=== PATIENT | female | born 1940 | race Caucasian/White ===

== ENCOUNTER 2017-10-17 18:45 | Inpatient (IN) | payer MEDICARE, MEDICAID ==
[2017-10-17] MEDS ORDERED: NORMAL SALINE 1000 ML 500 ML IV ONE (18:57)
[2017-10-17 19:23] LABS: ABSOLUTE MONOCYTES (AUTO) 0.3 10^3/uL (0.1-1.4); ABSOLUTE NEUT (AUTO) 3.5 10^3/uL (1.7-8.2); BASOPHILS % (AUTO) 0.5 % (0-2); EOSINOPHILS % (AUTO) 0.1 % (0-6); HEMATOCRIT 34.3 % (36.0-47.0); HEMOGLOBIN 11.9 g/dL (12.0-15.5); LYMPHOCYTES % (AUTO) 20.8 % (13-45); MEAN CORPUSCULAR HEMOGLOBIN 31.2 pg (27.0-33.4); MEAN CORPUSCULAR HGB CONC 34.6 g/dL (32.0-36.0); MEAN CORPUSCULAR VOLUME 90 fl (80-97); MONOCYTES % (AUTO) 6.8 % (3-13); PLATELET COUNT 193 10^3/uL (150-450); RED BLOOD COUNT 3.81 10^6/uL (3.72-5.28); RED CELL DISTRIBUTION WIDTH 13.3 % (11.5-14.0); SEGMENTED NEUTROPHILS % (AUTO) 71.8 % (42-78); TOTAL CELLS COUNTED % (AUTO) 100 %; WHITE BLOOD COUNT 4.9 10^3/uL (4.0-10.5)
--- NOTE | 2017-10-17 19:30 | EKG REPORT ---
SEVERITY:- ABNORMAL ECG - SINUS RHYTHM NONSPECIFIC T ABNORMALITIES, LATERAL LEADS : Confirmed by: Ady Inman 17-Oct-2017 19:29:04
[2017-10-17 19:39] LABS: ALANINE AMINOTRANSFERASE 29 U/L (9-52); ALBUMIN 3.6 g/dL (3.5-5.0); ALKALINE PHOSPHATASE 60 U/L (38-126); ANION GAP 9 (5-19); ASPARTATE AMINO TRANSFERASE 24 U/L (14-36); BILIRUBIN,DIRECT 0.3 mg/dL (0.0-0.4); BILIRUBIN,TOTAL 0.5 mg/dL (0.2-1.3); BLOOD UREA NITROGEN 11 mg/dL (7-20); CALCIUM 8.8 mg/dL (8.4-10.2); CARBON DIOXIDE 30 mmol/L (22-30); CHLORIDE 93 mmol/L (98-107); GLUCOSE 116 mg/dL (75-110); POTASSIUM 3.3 mmol/L (3.6-5.0); SODIUM 131.8 mmol/L (137-145); TOTAL PROTEIN 5.8 g/dL (6.3-8.2)
[2017-10-17] MEDS ORDERED: IPRATROPIUM/ALBUTEROL 0.5-2.5 MG/3 ML AMPUL NEB ONE (20:29)
[2017-10-17] MEDS ORDERED: METHYLPREDNISOLONE INJ 125 MG/2 ML SDV IV ONE (20:30)
--- NOTE | 2017-10-17 20:32 | ER Document Report ---
ED General - General Chief Complaint: Diarrhea Stated Complaint: BLOOD PRESSURE ISSUES Time Seen by Provider: 10/17/17 18:56 Notes: Patient is a 77-year-old female past medical history of COPD, hypertension, who presents after an episode of syncope as well as persistent diarrhea for the past 48 hours. Patient is apparently been having frequent runny diarrhea for the past 48 hours. She was sitting at the dinner table today, became lightheaded and passed out. EMS arrived and found patient be saturating 86% on room air with coarse wheezing in all lung gama. Her initial blood pressure was also in the 80s systolic. She received IV fluids in route to the hospital with normalization of her blood pressure. At time of my assessment the patient states that she overall feels well but mildly short of breath. She denies a history of similar symptoms in the past. She denies any chest pain, headache, abdominal pain, or vomiting. She does note that she continues to have persistent diarrhea. She has not seen her primary doctor regarding today's concerns. Nothing improves or worsens her symptoms TRAVEL OUTSIDE OF THE [place] IN LAST 30 DAYS: No - Related Data Allergies/Adverse Reactions: Penicillins Allergy (Verified 10/17/17 23:24) Past Medical History - General Information source: Patient, Relative - Social History Smoking Status: Current Every Day Smoker Chew tobacco use (# tins/day): No Frequency of alcohol use: None Drug Abuse: None Lives with: Family Family History: Reviewed & Not Pertinent Patient has suicidal ideation: No Patient has homicidal ideation: No - Past Medical History Cardiac Medical History: Reports: Hx Hypertension Renal/ Medical History: Denies: Hx Peritoneal Dialysis Review of Systems - Review of Systems Notes: Constitutional: Negative for fever. HENT: Negative for sore throat. Eyes: Negative for visual changes. Cardiovascular: Negative for chest pain. Respiratory: Positive for shortness of breath. Gastrointestinal: Negative for abdominal pain, positive for diarrhea Genitourinary: Negative for dysuria. Musculoskeletal: Negative for back pain. Skin: Negative for rash. Neurological: Negative for headaches, weakness or numbness. 10 point ROS negative except as marked above and in HPI. Physical Exam - Vital signs Vitals: Temp 98.9 F 10/17/17 19:01 Interpretation: Normal Notes: PHYSICAL EXAMINATION: GENERAL: Well-appearing, well-nourished and in no acute distress. HEAD: Atraumatic, normocephalic. EYES: Pupils equal round and reactive to light, extraocular movements intact, sclera anicteric, conjunctiva are normal. ENT: nares patent, oropharynx clear without exudates. Mildly dry mucous membranes. NECK: Normal range of motion, supple without lymphadenopathy LUNGS: No increased work of breathing. Lung sounds diminished throughout. Coarse respiratory wheezing throughout. HEART: Regular rate and rhythm without murmurs ABDOMEN: Soft, nontender, normoactive bowel sounds. No guarding, no rebound. No masses appreciated. EXTREMITIES: Normal range of motion, no pitting or edema. No cyanosis. NEUROLOGICAL: No focal neurological deficits. Moves all extremities spontaneously and on command. PSYCH: Normal mood, normal affect. SKIN: Warm, Dry, normal turgor, no rashes or lesions noted. Course - Re-evaluation Re-evalutation: 10/17/17 20:31 Patient presents with shortness of breath, hypoxic to 86% on room air and here in the emergency department with supplemental oxygen discontinued, with associated diarrhea and nausea for the past 48 hours. Patient did have a syncopal episode while at dinner tonight which I suspect was likely secondary to hypotension as patient was found to be hypotensive at time of presentation. She has had persistent diarrhea for the past 48 hours and does appear clinically dehydrated on exam. She and her family the bedside note that she seems much improved after receiving IV fluids. Patient is overall nontoxic in appearance, vitals other than hypoxemia are otherwise within normal limits. Motor examination she has very tight air movement in all lung gama, tight wheezing in all lung gama. Will begin duo nebulizer therapies, Solu-Medrol, IV fluids, and reassess the patient. 10/17/17 22:53 Patient has continued to require supplemental oxygenation despite administration of multiple nebulizer therapies, steroids and volume replacement. She desaturates rapidly to 85% on room air. Suspect a COPD exacerbation as chest x-ray is clear. I have discussed with the hospitalist Dr. Horn who is accepted the patient for admission. - Vital Signs Vital signs: Temp Pulse Resp BP Pulse Ox 98.9 F 83 16 124/50 L 95 10/17/17 19:01 10/18/17 01:54 10/18/17 01:54 10/17/17 22:47 10/18/17 01:54 - Laboratory Result Diagrams: 10/17/17 19:10 10/17/17 19:10 Laboratory results interpreted by me: 10/17/17 10/17/17 19:10 19:10 Hgb 11.9 L Hct 34.3 L Sodium 131.8 L Potassium 3.3 L Chloride 93 L Glucose 116 H Total Protein 5.8 L - Diagnostic Test Radiology reviewed: Image reviewed, Reports reviewed Radiology results interpreted by me: 10/17/17 20:46 Chest x-ray: No acute infiltrate or pneumothorax - EKG Interpretation by Me Additional EKG results interpreted by me: 10/17/17 20:46 Normal sinus rhythm. Rate 64. No ST elevations or depressions. QTC is 471. Discharge - Discharge Clinical Impression: COPD exacerbation, Dehydration Syncope Qualifiers: Syncope type: unspecified Qualified Code(s): R55 - Syncope and collapse Diarrhea Qualifiers: Diarrhea type: presumed infectious Qualified Code(s): R19.7 - Diarrhea, unspecified Condition: Fair Disposition: ADMITTED INPATIENT [facility] Admitted: Telemetry
--- NOTE | 2017-10-17 20:54 | RADIOLOGY REPORT (SQ) ---
EXAM DESCRIPTION: CHEST SINGLE VIEW COMPLETED DATE/TIME: 10/17/2017 8:36 pm REASON FOR STUDY: sob, hypoxia COMPARISON: None. EXAM PARAMETERS: NUMBER OF VIEWS: One view. TECHNIQUE: Single frontal radiographic view of the chest acquired. RADIATION DOSE: NA LIMITATIONS: None. FINDINGS: LUNGS AND PLEURA: No opacities, masses or pneumothorax. No pleural effusion. MEDIASTINUM AND HILAR STRUCTURES: No masses. Contour normal. HEART AND VASCULAR STRUCTURES: Heart upper limits of normal in size. Normal vasculature. BONES: No acute findings. HARDWARE: Hardware in the left humerus. OTHER: No other significant finding. IMPRESSION: NO ACUTE RADIOGRAPHIC FINDING IN THE CHEST. TECHNICAL DOCUMENTATION: JOB ID: [id number] [employer]- All Rights Reserved
[2017-10-17] MEDS ORDERED: KETOROLAC TROMETHAMINE INJ/PF 30 MG/1 ML SDV IV PRN (23:04)
[2017-10-17] MEDS ORDERED: CHLORPHENIRAMINE MALEATE 4 MG TABLET PO ONE (23:04)
[2017-10-17] MEDS ORDERED: ACETAMINOPHEN 325 MG TABLET PO PRN (23:04)
[2017-10-17] MEDS ORDERED: HYDRALAZINE HCL INJ/PF 20 MG/1 ML SDV IV PRN (23:04)
[2017-10-17] MEDS ORDERED: GUAIFENESIN SYRP 200 MG/10 ML UDC PO PRN (23:05)
[2017-10-17] MEDS ORDERED: IPRATROPIUM/ALBUTEROL 0.5-2.5 MG/3 ML AMPUL NEB PRN (23:05)
[2017-10-17] MEDS ORDERED: POTASSI CL 20 MEQ/50 ML RIDER 20 MEQ/50 ML RTUPB IV SCH (23:15)
[2017-10-17] MEDS ORDERED: FLUTICASONE NASAL SPRAY 50 MCG/SPRY 120 SPRAY/16 GM NASL ONE (23:45)
[2017-10-18] MEDS ORDERED: FLUTICASONE NASAL SPRAY 50 MCG/SPRY 120 SPRAY/16 GM ONE (00:47)
[2017-10-18] MEDS ORDERED: CHLORPHENIRAMINE MALEATE 4 MG TABLET ONE (00:59)
[2017-10-18] MEDS ORDERED: LEVOFLOXACIN 750 MG/D5W RTU 750 MG/150 ML RTUPB IV ONE (01:00)
[2017-10-18] MEDS: IPRATROPIUM/ALBUTEROL 0.5-2.5 MG/3 ML AMPUL NEB SCH ×4 (01:54→19:38)
[2017-10-18] MEDS ORDERED: POTASSIUM CHLORIDE 10 MEQ TABLET.SA PO ONE (03:26)
--- NOTE | 2017-10-18 03:37 | PDOC H&P ---
History of Present Illness Admission Date/PCP: 10/17/17 23:06 SABINA CORBIN MD Patient complains of: Shortness of breath and cough. History of Present Illness: LUCY ASIF is a 77 year old female with a past medical history of deafness, COPD, hypertension. Who presents after an episode of syncope which was preceded by severe paroxysms of cough and shortness of breath while at the dinner table however she denies eating during episode. EMS documents an oxygen saturation of 86% on room air with bilateral wheeze, systolic blood pressure in the 80s. She receives a liter of normal saline as a bolus in route to the emergency room. In the emergency room she is found to be normotensive with persistent wheeze. She denies chest pain palpitations nausea or vomiting but admits to 3 days rhinorrhea, postnasal drip and nonproductive cough. She started on empiric antibiotics and referred to the hospitalist for admission. She recent antibiotics, her symptoms of not improved with [id number] medications. Past Medical History Cardiac Medical History: Reports: Hypertension Pulmonary Medical History: Reports: Asthma, Bronchitis, Chronic Obstructive Pulmonary Disease (COPD) EENT Medical History: Reports: None Neurological Medical History: Reports: None Endocrine Medical History: Reports: None Renal/ Medical History: Reports: None Malignancy Medical History: Reports: None GI Medical History: Reports: None Musculoskeltal Medical History: Reports: None Skin Medical History: Reports: None Psychiatric Medical History: Reports: None Traumatic Medical History: Reports: None Hematology: Reports: None Infectious Medical History: Reports: None Past Surgical History Past Surgical History: Reports: Hysterectomy Social History Lives with: Family Smoking Status: Current Every Day Smoker - Advance Directive Resuscitation Status: Full Code Family History Family History: COPD, Hypertension Parental Family History Reviewed: Yes Children Family History Reviewed: Yes Sibling(s) Family History Reviewed.: Yes Medication/Allergy Allergies/Adverse Reactions: Penicillins Allergy (Verified 10/17/17 23:24) Review of Systems Constitutional: ABSENT: chills, fever(s), headache(s), weight gain, weight loss Eyes: ABSENT: visual disturbances Ears: ABSENT: hearing changes Cardiovascular: ABSENT: chest pain, dyspnea on exertion, edema, orthropnea, palpitations Respiratory: ABSENT: cough, hemoptysis Gastrointestinal: ABSENT: abdominal pain, constipation, diarrhea, hematemesis, hematochezia, nausea, vomiting Genitourinary: ABSENT: dysuria, hematuria Musculoskeletal: ABSENT: joint swelling Integumentary: ABSENT: rash, wounds Neurological: ABSENT: abnormal gait, abnormal speech, confusion, dizziness, focal weakness, syncope Psychiatric: ABSENT: anxiety, depression, homidical ideation, suicidal ideation Endocrine: ABSENT: cold intolerance, heat intolerance, polydipsia, polyuria Hematologic/Lymphatic: ABSENT: easy bleeding, easy bruising Physical Exam Vital Signs: Temp Pulse Resp BP Pulse Ox 98.9 F 83 16 124/50 L 95 10/17/17 19:01 10/18/17 01:54 10/18/17 01:54 10/17/17 22:47 10/18/17 01:54 Intake & Output 10/16/17 10/17/17 10/18/17 11:59 11:59 11:59 Weight 68.946 kg General appearance: PRESENT: cooperative, mild distress Head exam: PRESENT: atraumatic, normocephalic Eye exam: PRESENT: conjunctiva pink, EOMI, PERRLA. ABSENT: scleral icterus Ear exam: PRESENT: normal external ear exam Mouth exam: PRESENT: moist, tongue midline Neck exam: ABSENT: carotid bruit, JVD, lymphadenopathy, thyromegaly Respiratory exam: PRESENT: accessory muscle use, crackles, prolonged expiratory phas, rales, retraction, symmetrical, tachypnea, wheezes. ABSENT: rhonchi Cardiovascular exam: PRESENT: RRR. ABSENT: bradycardia, clicks, diastolic murmur, gallop, irregular rhythm, rubs, systolic murmur Pulses: PRESENT: normal dorsalis pedis pul Vascular exam: PRESENT: normal capillary refill GI/Abdominal exam: PRESENT: normal bowel sounds, soft. ABSENT: distended, guarding, mass, organolmegaly, rebound, tenderness Rectal exam: PRESENT: deferred Extremities exam: PRESENT: full ROM. ABSENT: calf tenderness, clubbing, pedal edema Neurological exam: PRESENT: alert, awake, oriented to person, oriented to place , oriented to time, oriented to situation, CN II-XII grossly intact. ABSENT: motor sensory deficit Psychiatric exam: PRESENT: appropriate affect, normal mood. ABSENT: homicidal ideation, suicidal ideation Skin exam: PRESENT: dry, intact, warm. ABSENT: cyanosis, rash Results Impressions: Chest X-Ray 10/17/17 18:56 IMPRESSION: NO ACUTE RADIOGRAPHIC FINDING IN THE CHEST. Assessment & Plan - Diagnosis (1) COPD exacerbation Is this a current diagnosis for this admission?: Yes Plan: Telemetry bed, secondary to sinusitis and bronchitis. Empiric antibiotics, trial prednisone, flutter valve, incentive spirometry albuterol and Atrovent (2) Acute sinusitis Is this a current diagnosis for this admission?: Yes Plan: Flonase, chlorpheniramine and empiric antibiotics (3) Acute bronchitis Is this a current diagnosis for this admission?: Yes Plan: Please see #1 (4) Syncope Qualifiers: Syncope type: unspecified Qualified Code(s): R55 - Syncope and collapse Is this a current diagnosis for this admission?: Yes Plan: Short lived without deficit occurring in the setting of severe fit of coughing, hypoxia and hyperventilation. - Time Time Spent: 50 to 70 Minutes
[2017-10-18 04:16] LABS: ABSOLUTE LYMPHOCYTES (AUTO) 0.4 10^3/uL (0.5-4.7); ABSOLUTE MONOCYTES (AUTO) 0.1 10^3/uL (0.1-1.4); ABSOLUTE NEUT (AUTO) 3.9 10^3/uL (1.7-8.2); BASOPHILS % (AUTO) 0.2 % (0-2); HEMOGLOBIN 11.1 g/dL (12.0-15.5); LYMPHOCYTES % (AUTO) 9.9 % (13-45); MEAN CORPUSCULAR HEMOGLOBIN 31.3 pg (27.0-33.4); MEAN CORPUSCULAR HGB CONC 34.7 g/dL (32.0-36.0); MEAN CORPUSCULAR VOLUME 90 fl (80-97); MONOCYTES % (AUTO) 1.5 % (3-13); PLATELET COUNT 183 10^3/uL (150-450); RED BLOOD COUNT 3.55 10^6/uL (3.72-5.28); RED CELL DISTRIBUTION WIDTH 13.2 % (11.5-14.0); SEGMENTED NEUTROPHILS % (AUTO) 88.4 % (42-78); TOTAL CELLS COUNTED % (AUTO) 100 %; WHITE BLOOD COUNT 4.4 10^3/uL (4.0-10.5)
[2017-10-18 04:34] LABS: ANION GAP 13 (5-19); BLOOD UREA NITROGEN 15 mg/dL (7-20); CALCIUM 8.4 mg/dL (8.4-10.2); CARBON DIOXIDE 25 mmol/L (22-30); CHLORIDE 95 mmol/L (98-107); GLUCOSE 280 mg/dL (75-110); SODIUM 132.9 mmol/L (137-145)
[2017-10-18 04:47] LABS: POTASSIUM 2.6 mmol/L (3.6-5.0)
[2017-10-18] MEDS ORDERED: HEPARIN SOD (PORCINE) 5,000 UNIT/ML 1 ML SYRINGE SUBCUT SCH (06:00)
[2017-10-18] MEDS: HEPARIN SOD (PORCINE) 5,000 UNIT/ML 1 ML SYRINGE SUBCUT SCH ×3 (06:22→21:30)
[2017-10-18] MEDS ORDERED: POTASSIUM CLORIDE 20 MEQ/50 ML RIDER IV ONE (08:30)
[2017-10-18] MEDS ORDERED: POTASSIUM CHLORIDE 20 MEQ/50 ML RTU IV ONE (08:30)
[2017-10-18] MEDS ORDERED: LEVOFLOXACIN 750 MG/D5W RTU 150 ML IV SCH (10:00)
[2017-10-18] MEDS ORDERED: PREDNISONE 20 MG TABLET PO SCH (10:00)
--- NOTE | 2017-10-18 10:24 | Physician Advisory Note ---
Physician Advisor ProgressNote .: Pursuant to the plan for [facility], I have reviewed the medical record for this patient. Physician Advisor Statement: Nice documentation of Acute Bronchitis w/COPD exac, & accessory muscle use/ retractions/resp distress/tachypnea in H&P. Please consider documenting, if you agree: 1. "Acute Hypoxemic REspiratory Failure with accessory muscle use & O2 sat 85% RA in ED" 2. "syncope, likely due to " 3. Medical necessity: Please mention in each note the clinical reasons pt still needs to stay in hospital, such as "Pt still tachycardic", "Acute hypokalemic is worse & may become more so from tx's for COPD exac", " respiratory status still not back to baseline", "still needs O2", "I AM CONCERNED about ", ... Status: this elderly Medicare pt has severe presentation, has already required 1 MN of hospital care & monitoring, & appears certain to need at least a 2nd MN of hospital care & monitoring before she can be expected to improve sufficiently for safe d/c. If attending agrees, & documents reasons as above, appropriate for Inpt status. Thanks! CK
[2017-10-18] MEDS: FLUTICASONE NASAL SPRAY 50 MCG/SPRY 120 SPRAY/16 GM NASL SCH ×2 (10:32→21:43)
[2017-10-18] MEDS: GUAIFENESIN 600 MG TABLET.SA PO SCH ×2 (10:32→21:30)
[2017-10-18] MEDS ORDERED: POTASSIUM CHLORIDE 20 MEQ/15 ML UDCUP PO ONE (11:00)
[2017-10-18] MEDS ORDERED: INFLUENZA ADLT QUAD (36MOS+) 2017-18 VAC 0.5 ML SYR IM PRN (12:31)
--- NOTE | 2017-10-18 12:39 | PDOC PROGRESS REPORT ---
Subjective Progress Note for:: 10/18/17 Subjective:: Patient is a 77-year-old female with a history of deafness, COPD, hypertension who presented after syncopal episode after a coughing fit. Patient was found to be hypoxic at that time. Patient appears more comfortable however she is still wheezing and coughing. Patient is asking when she will be able to go home. Patient states she feels okay. Reason For Visit: COPD EXACERBATION C ACUTE BRONCHITIS AND Physical Exam Vital Signs: Temp Pulse Resp BP Pulse Ox 98.9 F 87 20 126/57 H 94 10/17/17 19:01 10/18/17 07:45 10/18/17 08:00 10/18/17 08:00 10/18/17 08:00 Intake & Output 10/17/17 10/18/17 10/19/17 06:59 06:59 06:59 Weight 68.946 kg General appearance: PRESENT: no acute distress, well-developed, well-nourished Head exam: PRESENT: normocephalic Eye exam: PRESENT: EOMI. ABSENT: scleral icterus Ear exam: PRESENT: normal external ear exam Mouth exam: PRESENT: moist Neck exam: ABSENT: carotid bruit, JVD, lymphadenopathy, thyromegaly Respiratory exam: PRESENT: clear to auscultation misbah, unlabored, wheezes - Mild expiratory wheeze. ABSENT: accessory muscle use, rales, rhonchi Cardiovascular exam: PRESENT: RRR. ABSENT: diastolic murmur, rubs, systolic murmur Pulses: PRESENT: normal dorsalis pedis pul Vascular exam: PRESENT: normal capillary refill GI/Abdominal exam: PRESENT: normal bowel sounds, soft. ABSENT: distended, guarding, mass, organolmegaly, rebound, tenderness Rectal exam: PRESENT: deferred Extremities exam: PRESENT: full ROM. ABSENT: calf tenderness, clubbing, pedal edema Neurological exam: PRESENT: alert, awake, oriented to person, oriented to place , oriented to time, oriented to situation, other - Extremely hard of hearing. ABSENT: motor sensory deficit Psychiatric exam: PRESENT: appropriate affect, normal mood. ABSENT: homicidal ideation, suicidal ideation Skin exam: PRESENT: dry, intact, warm. ABSENT: cyanosis, rash Results Laboratory Results: 10/18/17 04:05 10/18/17 04:05 10/18/17 10/18/17 04:05 04:05 WBC 4.4 RBC 3.55 L Hgb 11.1 L Hct 32.0 L MCV 90 MCH 31.3 MCHC 34.7 RDW 13.2 Plt Count 183 Seg Neutrophils % 88.4 H Lymphocytes % 9.9 L Monocytes % 1.5 L Eosinophils % 0.0 Basophils % 0.2 Absolute Neutrophils 3.9 Absolute Lymphocytes 0.4 L Absolute Monocytes 0.1 Absolute Eosinophils 0.0 Absolute Basophils 0.0 Sodium 132.9 L Potassium 2.6 L* Chloride 95 L Carbon Dioxide 25 Anion Gap 13 BUN 15 Creatinine 0.60 Est GFR ( Amer) > 60 Est GFR (Non-Af Amer) > 60 Glucose 280 H Calcium 8.4 Impressions: Chest X-Ray 10/17/17 18:56 IMPRESSION: NO ACUTE RADIOGRAPHIC FINDING IN THE CHEST. Assessment & Plan - Diagnosis (1) COPD exacerbation Is this a current diagnosis for this admission?: Yes Plan: Mild COPD exacerbation due to acute bronchitis. Patient on p.o. steroids, p.o. antibiotics, inhalers and antihistamines as needed antitussives. (2) Acute bronchitis Is this a current diagnosis for this admission?: Yes Plan: Most likely viral in nature. Will screen for influenza. Continue management as stated above in COPD exacerbation (3) Hypokalemia Is this a current diagnosis for this admission?: Yes Plan: Is likely due to the use of hydrochlorothiazide. Patient is receiving replacement. Will repeat BMP at 1600 and replace accordingly. (4) Acute sinusitis Is this a current diagnosis for this admission?: Yes Plan: Patient is on Flonase, antibiotics and antihistamine monitor for improvement. (5) Syncope Qualifiers: Syncope type: unspecified Qualified Code(s): R55 - Syncope and collapse Is this a current diagnosis for this admission?: Yes Plan: Patient thought to have passed out after becoming hypoxic from a coughing spell. Patient has not had any further syncopal episodes. Will check orthostatics. (6) Acute respiratory failure with hypoxia Is this a current diagnosis for this admission?: Yes Plan: Patient with hypoxic respiratory failure. It was reported that patient sepsis in the 80s when she presented to the ED. Patient has been on supplemental oxygen and maintaining her sats in the mid to high 90s on 2 L. Will have patient ambulate with pulse ox to see if she can maintain her saturations. - Time Time Spent with patient: 15-24 minutes Anticipated discharge: Home Within: within 24 hours - Inpatient Certification Medical Necessity: Need for Nebulizer Therapy and Monitoring of Response
[2017-10-18] MEDS: BUDESONIDE NEB 0.5 MG/2 ML AMPUL NEB SCH (19:40)
[2017-10-18] MEDS: MONTELUKAST SODIUM 10 MG TABLET PO SCH (21:30)
[2017-10-18] MEDS ORDERED: LEVOFLOXACIN 750 MG/D5W RTU 750 MG/150 ML RTUPB IV SCH (22:00)
[2017-10-19] MEDS: IPRATROPIUM/ALBUTEROL 0.5-2.5 MG/3 ML AMPUL NEB SCH ×4 (02:23→20:21)
[2017-10-19] MEDS: HEPARIN SOD (PORCINE) 5,000 UNIT/ML 1 ML SYRINGE SUBCUT SCH ×3 (05:09→21:37)
[2017-10-19] MEDS: BUDESONIDE NEB 0.5 MG/2 ML AMPUL NEB SCH ×2 (07:50→20:20)
[2017-10-19] MEDS: LEVOFLOXACIN 750 MG TABLET PO SCH (11:19)
[2017-10-19] MEDS: PREDNISONE 20 MG TABLET PO SCH (11:20)
[2017-10-19] MEDS: GUAIFENESIN 600 MG TABLET.SA PO SCH ×2 (11:20→21:36)
[2017-10-19] MEDS: FLUTICASONE NASAL SPRAY 50 MCG/SPRY 120 SPRAY/16 GM NASL SCH ×2 (11:25→21:35)
--- NOTE | 2017-10-19 15:07 | PDOC PROGRESS REPORT ---
Subjective Progress Note for:: 10/19/17 Subjective:: Patient is a 77-year-old female with a history of deafness, COPD, hypertension who presented after syncopal episode after a coughing fit. Patient was found to be hypoxic at that time. Patient not wheezing but is still very short of breath even with speaking. Patient is eager to go home but she is not ready. Reason For Visit: EXACERBATION COPD ACUTE BRONCHITIS HYPOKALEMIA Physical Exam Vital Signs: Temp Pulse Resp BP Pulse Ox 98.4 F 88 18 153/82 H 88 L 10/19/17 11:07 10/19/17 13:48 10/19/17 13:48 10/19/17 11:07 10/19/17 11:07 Intake & Output 10/18/17 10/19/17 10/20/17 06:59 06:59 06:59 Intake Total 265 Balance 265 Weight 68.946 kg 68.9 kg General appearance: PRESENT: no acute distress, well-developed, well-nourished Head exam: PRESENT: normocephalic Eye exam: PRESENT: EOMI. ABSENT: scleral icterus Ear exam: PRESENT: normal external ear exam Mouth exam: PRESENT: moist Neck exam: ABSENT: carotid bruit, JVD, lymphadenopathy, thyromegaly Respiratory exam: PRESENT: clear to auscultation misbah, other - dyspneic with speaking and minimal activity. ABSENT: rales, rhonchi, wheezes Cardiovascular exam: PRESENT: RRR. ABSENT: diastolic murmur, rubs, systolic murmur Pulses: PRESENT: normal dorsalis pedis pul Vascular exam: PRESENT: normal capillary refill GI/Abdominal exam: PRESENT: normal bowel sounds, soft. ABSENT: distended, guarding, mass, organolmegaly, rebound, tenderness Rectal exam: PRESENT: deferred Extremities exam: PRESENT: full ROM. ABSENT: calf tenderness, clubbing, pedal edema Neurological exam: PRESENT: alert, awake, oriented to person, oriented to place , oriented to time, oriented to situation, CN II-XII grossly intact. ABSENT: motor sensory deficit Psychiatric exam: PRESENT: appropriate affect, normal mood. ABSENT: homicidal ideation, suicidal ideation Skin exam: PRESENT: dry, intact, warm. ABSENT: cyanosis, rash Results Laboratory Results: 10/18/17 04:05 10/18/17 04:05 Impressions: Chest X-Ray 10/17/17 18:56 IMPRESSION: NO ACUTE RADIOGRAPHIC FINDING IN THE CHEST. Assessment & Plan - Diagnosis (1) Acute respiratory failure with hypoxia Is this a current diagnosis for this admission?: Yes Plan: Patient with hypoxic respiratory failure. Patient desats into the 80s off oxygen. Patient normally does not wear oxygen at home. Will continue to wean as tolerated. Base on oxygen needs along with dyspnea at rest, patient is not ready for discharge. (2) COPD exacerbation Is this a current diagnosis for this admission?: Yes Plan: Mild COPD exacerbation due to acute bronchitis. Patient on p.o. steroids, p.o. antibiotics, inhalers and antihistamines as needed antitussives. (3) Acute bronchitis Is this a current diagnosis for this admission?: Yes Plan: Most likely viral in nature. Continue management as stated above in COPD exacerbation. Will follow up on influenza screen. (4) Hypokalemia Is this a current diagnosis for this admission?: Yes Plan: Is likely due to the use of hydrochlorothiazide. Will follow up and give more replacement if needed. (5) Acute sinusitis Is this a current diagnosis for this admission?: Yes Plan: Patient is on Flonase, antibiotics and antihistamine monitor for improvement. (6) Syncope Qualifiers: Syncope type: unspecified Qualified Code(s): R55 - Syncope and collapse Is this a current diagnosis for this admission?: Yes Plan: Patient thought to have passed out after becoming hypoxic from a coughing spell. Patient has not had any further syncopal episodes. Patient is not orthostatic. (7) Hyponatremia Is this a current diagnosis for this admission?: Yes Plan: Most likely due to HCTZ. Will follow up. - Time Time Spent with patient: Less than 15 minutes Anticipated discharge: Home Within: within 72 hours - Inpatient Certification Medical Necessity: Need for Nebulizer Therapy and Monitoring of Response - Patient requires supplemental oxygen. Still weaning as tolerated. Patient currently cannot be weaned.
[2017-10-19] MEDS ORDERED: POTASSIUM CHLORIDE 20 MEQ/15 ML UDCUP PO SCH (16:00)
[2017-10-19 16:17] LABS: ANION GAP 10 (5-19); BLOOD UREA NITROGEN 16 mg/dL (7-20); CALCIUM 9.7 mg/dL (8.4-10.2); CARBON DIOXIDE 28 mmol/L (22-30); CHLORIDE 97 mmol/L (98-107); GLUCOSE 193 mg/dL (75-110); MAGNESIUM 1.6 mg/dL (1.6-2.3); POTASSIUM 4.3 mmol/L (3.6-5.0); SODIUM 134.6 mmol/L (137-145)
[2017-10-19 18:23] LABS: A TYPE INFLUENZA AG NEGATIVE (NEGATIVE); B INFLUENZA AG NEGATIVE (NEGATIVE)
[2017-10-19] MEDS: MONTELUKAST SODIUM 10 MG TABLET PO SCH (21:36)
[2017-10-20] MEDS: IPRATROPIUM/ALBUTEROL 0.5-2.5 MG/3 ML AMPUL NEB SCH ×4 (02:29→20:20)
[2017-10-20] MEDS: HEPARIN SOD (PORCINE) 5,000 UNIT/ML 1 ML SYRINGE SUBCUT SCH ×3 (05:18→22:22)
[2017-10-20] MEDS: BUDESONIDE NEB 0.5 MG/2 ML AMPUL NEB SCH ×2 (09:15→20:21)
[2017-10-20] MEDS: GUAIFENESIN 600 MG TABLET.SA PO SCH ×2 (10:36→22:26)
[2017-10-20] MEDS: PREDNISONE 20 MG TABLET PO SCH (10:37)
[2017-10-20] MEDS: FLUTICASONE NASAL SPRAY 50 MCG/SPRY 120 SPRAY/16 GM NASL SCH ×2 (10:37→22:25)
[2017-10-20] MEDS: LEVOFLOXACIN 750 MG TABLET PO SCH (10:37)
[2017-10-20] MEDS ORDERED: ACETAMINOPHEN 325 MG TABLET PO PRN (16:00)
[2017-10-20] MEDS: MONTELUKAST SODIUM 10 MG TABLET PO SCH (22:26)
[2017-10-21] MEDS: IPRATROPIUM/ALBUTEROL 0.5-2.5 MG/3 ML AMPUL NEB SCH ×2 (02:20→07:39)
[2017-10-21] MEDS: HEPARIN SOD (PORCINE) 5,000 UNIT/ML 1 ML SYRINGE SUBCUT SCH (04:54)
[2017-10-21] MEDS: BUDESONIDE NEB 0.5 MG/2 ML AMPUL NEB SCH (07:39)
[2017-10-21] MEDS: PREDNISONE 20 MG TABLET PO SCH (09:05)
[2017-10-21] MEDS: LEVOFLOXACIN 750 MG TABLET PO SCH (09:06)
[2017-10-21] MEDS: GUAIFENESIN 600 MG TABLET.SA PO SCH (09:06)
[2017-10-21] MEDS: FLUTICASONE NASAL SPRAY 50 MCG/SPRY 120 SPRAY/16 GM NASL SCH (09:07)
[2017-10-21] MEDS ORDERED: MAGNESIUM OXIDE 400 MG TABLET PO ONE (09:10)
[2017-10-21] MEDS ORDERED: MAGNESIUM SULFATE/D5W 1 GM/100 ML RTUPB IV ONE (10:00)
[2017-10-21] MEDS ORDERED: FLUTICASONE/SALMETEROL DISKUS 250-50 MCG/DOSE IH ONE (11:00)
[2017-10-21 12:53] VITALS: BP 170/69
--- NOTE | 2017-10-21 23:23 | PDOC PROGRESS REPORT ---
Subjective Progress Note for:: 10/20/17 Subjective:: Patient is a 77-year-old female with a history of deafness, COPD, hypertension who presented after syncopal episode after a coughing fit. Patient was found to be hypoxic at that time. Patient not wheezing but is still very short of breath even with speaking. Patient doing well today. Plan is for discharge tomorrow. Reason For Visit: EXACERBATION COPD ACUTE BRONCHITIS HYPOKALEMIA Physical Exam Vital Signs: Temp Pulse Resp BP Pulse Ox 97.8 F 85 17 151/65 H 95 10/20/17 16:27 10/20/17 16:27 10/20/17 16:27 10/20/17 16:27 10/20/17 17:16 Intake & Output 10/19/17 10/20/17 10/21/17 06:59 06:59 06:59 Intake Total 265 1630 828 Output Total 700 Balance 265 1630 128 Weight 68.9 kg 68.9 kg General appearance: PRESENT: no acute distress, well-developed, well-nourished Head exam: PRESENT: normocephalic Eye exam: ABSENT: scleral icterus Ear exam: PRESENT: normal external ear exam Mouth exam: PRESENT: moist Neck exam: ABSENT: carotid bruit, JVD, lymphadenopathy, thyromegaly Respiratory exam: PRESENT: clear to auscultation misbah. ABSENT: rales, rhonchi, wheezes Cardiovascular exam: PRESENT: RRR. ABSENT: diastolic murmur, rubs, systolic murmur GI/Abdominal exam: PRESENT: normal bowel sounds, soft. ABSENT: distended, guarding, mass, organolmegaly, rebound, tenderness Rectal exam: PRESENT: deferred Extremities exam: PRESENT: full ROM. ABSENT: calf tenderness, clubbing, pedal edema Neurological exam: PRESENT: alert, awake, oriented to person, oriented to place , oriented to time, oriented to situation, other - heard of hearing. ABSENT: motor sensory deficit Psychiatric exam: PRESENT: appropriate affect, normal mood. ABSENT: homicidal ideation, suicidal ideation Skin exam: PRESENT: dry, intact, warm. ABSENT: cyanosis, rash Results Laboratory Results: 10/18/17 04:05 10/19/17 15:33 Impressions: Chest X-Ray 10/17/17 18:56 IMPRESSION: NO ACUTE RADIOGRAPHIC FINDING IN THE CHEST. Assessment & Plan - Diagnosis (1) Acute respiratory failure with hypoxia Is this a current diagnosis for this admission?: Yes Plan: Patient with hypoxic respiratory failure. Patient desats into the 80s off oxygen. Patient normally does not wear oxygen at home. Patient being weaned off oxygen. She has spent time off oxygen today and maintained her saturations. (2) COPD exacerbation Is this a current diagnosis for this admission?: Yes Plan: Mild COPD exacerbation due to acute bronchitis. Continue p.o. steroids, p.o. antibiotics, inhalers and antihistamines as needed antitussives. (3) Acute bronchitis Is this a current diagnosis for this admission?: Yes Plan: Most likely viral in nature. Continue management as stated above in COPD exacerbation. Will follow up on influenza screen. (4) Hypokalemia Is this a current diagnosis for this admission?: Yes Plan: Is likely due to the use of hydrochlorothiazide. Replaced PRN. (5) Acute sinusitis Is this a current diagnosis for this admission?: Yes Plan: Continue Flonase, antibiotics and antihistamine monitor for improvement. (6) Syncope Qualifiers: Syncope type: unspecified Qualified Code(s): R55 - Syncope and collapse Is this a current diagnosis for this admission?: Yes Plan: Patient thought to have passed out after becoming hypoxic from a coughing spell. No more syncopal episodes. Patient is not orthostatic. (7) Hyponatremia Is this a current diagnosis for this admission?: Yes Plan: Most likely due to HCTZ. Improved with IV fluids. - Time Time Spent with patient: Less than 15 minutes Anticipated discharge: Home Within: within 24 hours
--- NOTE | 2017-10-21 23:37 | PDOC DISCHARGE SUMMARY ---
General - Admit/Disc Date/PCP Admission Date/Primary Care Provider: 10/17/17 23:06 SABINA CORBIN MD Discharge Date: 10/21/17 - Discharge Diagnosis (1) Acute respiratory failure with hypoxia Is this a current diagnosis for this admission?: Yes (2) COPD exacerbation Is this a current diagnosis for this admission?: Yes (3) Acute bronchitis Is this a current diagnosis for this admission?: Yes (4) Hypokalemia Is this a current diagnosis for this admission?: Yes (5) Acute sinusitis Is this a current diagnosis for this admission?: Yes (6) Syncope Is this a current diagnosis for this admission?: Yes (7) Hyponatremia Is this a current diagnosis for this admission?: Yes - Additional Information Resuscitation Status: Full Code Discharge Activity: Walk Frequently Prescriptions: Levofloxacin [Levaquin 750 mg Tablet] 250 mg PO DAILY #5 tablet Methylprednisolone [Medrol Dosepack (4 mg/Tab) 21 Tab/Dosepak] 4 mg PO ASDIR PRN #21 tab.ds.pk PRN Reason: Home Medications: Albuterol Sulfate [Ventolin HFA MDI 18 GM] 2 puff IH Q4HP PRN 10/18/17 Amlodipine Besylate [Norvasc 10 mg Tablet] 10 mg PO DAILY 10/18/17 Atorvastatin Calcium [Lipitor 20 mg Tablet] 20 mg PO DAILY 10/18/17 Dexlansoprazole [Dexilant 60 mg Capsule] 60 mg PO DAILY 10/18/17 Ipratropium [place] [Atrovent Hfa] 1 puff IH BID 10/18/17 Metoprolol Tartrate [Lopressor 50 mg Tablet] 50 mg PO Q12 10/18/17 Levofloxacin [Levaquin 750 mg Tablet] 250 mg PO DAILY #5 tablet 10/21/17 Methylprednisolone [Medrol Dosepack (4 mg/Tab) 21 Tab/Dosepak] 4 mg PO ASDIR PRN #21 tab.ds.pk 10/21/17 History of Present Illness History of Present Illness: LUCY ASIF is a 77 year old female with a past medical history of deafness, COPD, hypertension. Who presents after an episode of syncope which was preceded by severe paroxysms of cough and shortness of breath while at the dinner table however she denies eating during episode. EMS documents an oxygen saturation of 86% on room air with bilateral wheeze, systolic blood pressure in the 80s. She receives a liter of normal saline as a bolus in route to the emergency room. In the emergency room she is found to be normotensive with persistent wheeze. She denies chest pain palpitations nausea or vomiting but admits to 3 days rhinorrhea, postnasal drip and nonproductive cough. She started on empiric antibiotics and referred to the hospitalist for admission. She recent antibiotics, her symptoms of not improved with [id number] medications. H&P was dictated by Dr. Horn. Please refer to the original dictation for further details. Hospital Course Hospital Course: Patient presented after a syncope thought to be due to a hypoxia resulting from a bronchospastic episode. Patient was diagnosed with hypoxic respiratory failure due to acute bronchitis. Patient was treated with nebs, steroids, antibiotics and steroids. Patient gradually improved and was discharged home with steroids and po antibiotics. Patient also had sinusitis for which she was started on antibitoics and flonase. She did have hyponatremia, hypokalemia and hypomagnesemia which all resulted from HCTZ. This medication was held during the hospitalization and discharge. She was given replacement for all of the abnormalities. Patient was discharge home on antibiotics and steroid taper. Patient is doing well and is to follow up with her PCP on discharge. Physical Exam Vital Signs: Temp Pulse Resp BP Pulse Ox 98.2 F 80 18 170/69 H 92 10/21/17 13:15 10/21/17 13:15 10/21/17 13:15 10/21/17 11:23 10/21/17 13:15 Intake & Output 10/20/17 10/21/17 10/22/17 06:59 06:59 06:59 Intake Total 1630 1188 Output Total 1200 Balance 1630 -12 Weight 68.9 kg 71.3 kg General appearance: PRESENT: no acute distress, well-developed, well-nourished Head exam: PRESENT: normocephalic Eye exam: PRESENT: EOMI. ABSENT: scleral icterus Mouth exam: PRESENT: moist Neck exam: ABSENT: carotid bruit, JVD, lymphadenopathy, thyromegaly Respiratory exam: PRESENT: clear to auscultation misbah. ABSENT: rales, rhonchi, wheezes Cardiovascular exam: PRESENT: RRR. ABSENT: diastolic murmur, rubs, systolic murmur GI/Abdominal exam: PRESENT: normal bowel sounds, soft. ABSENT: distended, guarding, mass, organolmegaly, rebound, tenderness Rectal exam: PRESENT: deferred Extremities exam: PRESENT: full ROM. ABSENT: calf tenderness, clubbing, pedal edema Neurological exam: PRESENT: alert, awake, oriented to person, oriented to place , oriented to time, oriented to situation, other - deaf. ABSENT: motor sensory deficit Psychiatric exam: PRESENT: appropriate affect, normal mood. ABSENT: homicidal ideation, suicidal ideation Skin exam: PRESENT: dry, intact, warm. ABSENT: cyanosis, rash Results Laboratory Results: 10/18/17 04:05 10/19/17 15:33 Impressions: Chest X-Ray 10/17/17 18:56 IMPRESSION: NO ACUTE RADIOGRAPHIC FINDING IN THE CHEST. Qualifiers PATEINT BEING DISCHARGED WITH ANY OF THE FOLLOWING DIAGNOSIS?: No Plan Time Spent: Greater than 30 Minutes - Patient lost her scripts after being discharged. Her perscriptions were called into [facility] on [address].
== END 2017-10-21 13:58 | disposition home or self-care (01) | DRG 202 ==
LOC: ER 18:45 → INTOOBSV 23:06 → OBSVTOIN 23:06 → EH 23:06 → OBSVTOIN 10-18 15:27 → 5 10-18 20:45
PROVIDERS: ADMIT Internal Medicine; ATTEND Internal Medicine
PROC: 3E0F73Z Introduction of Anti-inflammatory into Respiratory Tract, Via Natural or Artificial Opening (ICD-10-PCS; principal; 2017-10-18)
PROC: 3E0234Z Introduction of Serum, Toxoid and Vaccine into Muscle, Percutaneous Approach (ICD-10-PCS; 2017-10-21)
DX: J20.9 Acute bronchitis, unspecified (principal); J96.01 Acute respiratory failure with hypoxia; J44.1 Chronic obstructive pulmonary disease with (acute) exacerbation; E87.1 Hypo-osmolality and hyponatremia; J44.0 Chronic obstructive pulmonary disease with (acute) lower respiratory infection; E87.6 Hypokalemia; J01.90 Acute sinusitis, unspecified; I10 Essential (primary) hypertension; H91.90 Unspecified hearing loss, unspecified ear; F17.210 Nicotine dependence, cigarettes, uncomplicated; Z23 Encounter for immunization; Z79.899 Other long term (current) drug therapy; Z90.710 Acquired absence of both cervix and uterus; Z83.6 Family history of other diseases of the respiratory system; Z82.49 Family history of ischemic heart disease and other diseases of the circulatory system; Z88.0 Allergy status to penicillin
CPT/HCPCS: 36415; 71045; 80048; 80053; 83735; 84484; 85025; 87804; 90686; 93005; 93010; 94002; 94640; 94667; 94668; 94799; 96374; 99285; G0378; J1644; J1956; J2930; J3475; J3480; J3490; J7030; J7512; J7620

== ENCOUNTER → 2019-02-01 | Outpatient (CLI) | payer MEDICARE, MEDICAID ==
[2019-02-01 08:10] LABS: ABSOLUTE BASOPHILS # (AUTO) 0.1 10^3/uL (0.0-0.2); ABSOLUTE EOSINOPHILS # (AUTO) 0.1 10^3/uL (0.0-0.6); ABSOLUTE LYMPHOCYTES (AUTO) 1.8 10^3/uL (0.5-4.7); ABSOLUTE MONOCYTES (AUTO) 0.6 10^3/uL (0.1-1.4); ABSOLUTE NEUT (AUTO) 4.2 10^3/uL (1.7-8.2); BASOPHILS % (AUTO) 0.8 % (0-2); EOSINOPHILS % (AUTO) 1.9 % (0-6); HEMATOCRIT 34.4 % (36.0-47.0); HEMOGLOBIN 11.5 g/dL (12.0-15.5); LYMPHOCYTES % (AUTO) 26.8 % (13-45); MEAN CORPUSCULAR HEMOGLOBIN 31.1 pg (27.0-33.4); MEAN CORPUSCULAR HGB CONC 33.4 g/dL (32.0-36.0); MEAN CORPUSCULAR VOLUME 93 fl (80-97); MONOCYTES % (AUTO) 8.3 % (3-13); PLATELET COUNT 287 10^3/uL (150-450); RED BLOOD COUNT 3.69 10^6/uL (3.72-5.28); RED CELL DISTRIBUTION WIDTH 14.3 % (11.5-14.0); SEGMENTED NEUTROPHILS % (AUTO) 62.2 % (42-78); TOTAL CELLS COUNTED % (AUTO) 100 %; WHITE BLOOD COUNT 6.8 10^3/uL (4.0-10.5)
--- NOTE | 2019-02-01 08:52 | RADIOLOGY REPORT (SQ) ---
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 NUMBER OF VIEWS: Three views. TECHNIQUE: AP, lateral, and oblique radiographic images acquired of the left ankle. LIMITATIONS: None. FINDINGS: MINERALIZATION: Age-appropriate osteopenia BONES: No acute fracture or dislocation. No worrisome bone lesions. Small plantar calcaneal spur JOINTS: No effusions. SOFT TISSUES: No radiopaque foreign body or soft tissue gas. Medial and lateral malleolar soft tissu e ulcers are present. OTHER: Achilles tendon calcification IMPRESSION: Medial and lateral malleolar soft tissue ulcers without underlying plain film bony findi ngs to suggest osteomyelitis TECHNICAL DOCUMENTATION: JOB ID: [id number] [employer]- All Rights Reserved Reading location - IP/workstation name: [email or web address]
--- NOTE | 2019-02-01 08:58 | RADIOLOGY REPORT (SQ) ---
EXAM DESCRIPTION: ANKLE RIGHT COMPLETE COMPLETED DATE/TIME: 02/01/2019 7:52 am REASON FOR STUDY: NON-PRESSURE CHRONIC ULCER OF RIGHT ANKLE W FAT LAYER EXPOSED L97.312 NON-PRS CHR ONIC ULCER OF RIGHT ANKLE W FAT LAYER EXP L97.322 NON-PRESSURE CHRONIC ULCER OF LEFT ANKLE W FAT LAY ER COMPARISON: None. NUMBER OF VIEWS: Three views. TECHNIQUE: AP, lateral, and oblique radiographic images acquired of the right ankle. LIMITATIONS: None. FINDINGS: MINERALIZATION: Normal. BONES: There is demineralization of the medial malleolus adjacent to soft tissue ulceration. If the re is clinical indication of osteomyelitis follow-up with MRI could be useful. Plantar calcaneal bon e spur. Calcification in the soft tissues of the plantar fascia which could represent changes of chr onic plantar fasciitis. JOINTS: No effusions. SOFT TISSUES: Soft tissue deformity adjacent to medial malleolus consistent with history of soft tiss ue ulcer. OTHER: No other significant finding. IMPRESSION: Findings consistent with demineralization of medial malleolus. If considering osteomyel itis ,follow-up with MRI could be useful. Plantar calcaneal bone spur. Findings which could represe nt changes of chronic plantar fasciitis. TECHNICAL DOCUMENTATION: JOB ID: [id number] [employer]- All Rights Reserved Reading location - IP/workstation name: [email or web address]
[2019-02-01 09:01] LABS: ERYTHROCYTE SEDIMENTATION RATE 62 mm/hr (0-30)
[2019-02-01 09:52] LABS: ALANINE AMINOTRANSFERASE 24 U/L (9-52); ALKALINE PHOSPHATASE 73 U/L (38-126); ANION GAP 9 (5-19); ASPARTATE AMINO TRANSFERASE 17 U/L (14-36); BILIRUBIN,DIRECT 0.3 mg/dL (0.0-0.4); BILIRUBIN,TOTAL 0.4 mg/dL (0.2-1.3); BLOOD UREA NITROGEN 17 mg/dL (7-20); C-REACTIVE PROTEIN 9.8 mg/L (<10.0); CALCIUM 9.7 mg/dL (8.4-10.2); CARBON DIOXIDE 29 mmol/L (22-30); CHLORIDE 103 mmol/L (98-107); GLUCOSE 92 mg/dL (75-110); POTASSIUM 5.2 mmol/L (3.6-5.0); SODIUM 141.1 mmol/L (137-145); TOTAL PROTEIN 6.6 g/dL (6.3-8.2)
== END ==
LOC: WC 07:23
PROVIDERS: ATTEND Preventive Medicine Undersea and Hyperbaric Medicine
DX: L97.312 Non-pressure chronic ulcer of right ankle with fat layer exposed (principal); L97.322 Non-pressure chronic ulcer of left ankle with fat layer exposed
CPT/HCPCS: 36415; 80053; 85025; 85652; 86140

== ENCOUNTER 2019-02-04 19:27 | Emergency (ER) | payer MEDICARE, MEDICAID ==
--- NOTE | 2019-02-04 19:47 | ER Document Report ---
ED General - General Stated Complaint: ALTERED MENTAL STATUS Time Seen by Provider: 02/04/19 19:46 Primary Care Provider: AYANA GARAY DPM [Primary Care Provider] - Follow up as needed Notes: Patient is a 78-year-old female with past medical history of hypertension, recurrent episodes of syncope who presents after an episode of near syncope while at dinner. Family states that the patient was sitting at dinner, began to state that she felt lightheaded, became diaphoretic and appeared like she was about to pass out. EMS was contacted, found patient's blood pressures to be in the 50s systolic. Fluid resuscitation was initiated and patient's blood pressure normalized in route to the hospital. The patient states that she also complete resolution of all symptoms. The patient and family report that she has a long-standing history of similar symptoms and that has these episodes at varying frequency last being in September of this year. Family and patient note that this seems to always occur when the patient is eating and if she has been recently emotionally upset. They report that she has had an extensive evaluation by cardiology and neurology without any etiology being identified. The patient denies any preceding symptoms of chest pain or shortness of breath and currently denies any symptoms of any kind. She states "I would like to get out of here please". She has not recently followed up with her primary care doctor regarding these recurrent episodes of syncope. TRAVEL OUTSIDE OF THE [place] IN LAST 30 DAYS: No - HPI Onset: Just prior to arrival Onset/Duration: Sudden Quality of pain: No pain Severity: Severe Pain Level: Denies Associated symptoms: Nausea Exacerbated by: Denies Relieved by: Other - IV fluids Similar symptoms previously: Yes Recently seen / treated by doctor: No - Related Data Allergies/Adverse Reactions: Penicillins Allergy (Verified 10/17/17 23:24) Past Medical History - General Information source: Patient, Relative - Social History Smoking Status: Current Every Day Smoker Frequency of alcohol use: None Drug Abuse: None Lives with: Family Family History: Reviewed & Not Pertinent - Past Medical History Cardiac Medical History: Reports: Hx Hypertension Pulmonary Medical History: Reports: Hx Asthma, Hx Bronchitis, Hx COPD Renal/ Medical History: Denies: Hx Peritoneal Dialysis Past Surgical History: Reports: Hx Hysterectomy Review of Systems - Review of Systems Notes: Constitutional: Negative for fever. HENT: Negative for sore throat. Eyes: Negative for visual changes. Cardiovascular: Negative for chest pain. Positive for near-syncope Respiratory: Negative for shortness of breath. Gastrointestinal: Negative for abdominal pain, vomiting or diarrhea. Genitourinary: Negative for dysuria. Musculoskeletal: Negative for back pain. Skin: Negative for rash. Neurological: Negative for headaches, weakness or numbness. 10 point ROS negative except as marked above and in HPI. Physical Exam - Vital signs Vitals: Temp 97.4 F 02/04/19 19:27 Interpretation: Normal Notes: PHYSICAL EXAMINATION: GENERAL: Well-appearing, well-nourished and in no acute distress. HEAD: Atraumatic, normocephalic. EYES: Pupils equal round and reactive to light, extraocular movements intact, sclera anicteric, conjunctiva are normal. ENT: nares patent, oropharynx clear without exudates. Moist mucous membranes. NECK: Normal range of motion, supple without lymphadenopathy LUNGS: Breath sounds clear to auscultation bilaterally and equal. No wheezes rales or rhonchi. HEART: Regular rate and rhythm without murmurs ABDOMEN: Soft, nontender, normoactive bowel sounds. No guarding, no rebound. No masses appreciated. EXTREMITIES: Normal range of motion, no pitting or edema. No cyanosis. NEUROLOGICAL: Face symmetric. Tongue protrudes midline. Extraocular motions intact. Pupils are 2 mm and equally reactive. Normal speech, normal gait. 5 out of 5 strength in both the distal and proximal upper and lower extremities bilaterally. Sensation is grossly intact throughout. Finger to nose testing normal. Pronator drift normal. PSYCH: Normal mood, normal affect. SKIN: Warm, Dry, normal turgor, no rashes or lesions noted. Course - Re-evaluation Re-evalutation: 02/04/19 21:22 Presentation of near syncope of unclear etiology. Patient normotensive, alert, without focal neurologic deficits at time of arrival although was hypotensive for EMS. Denies episode of near syncope was during exertion. No preceding symptoms of palpitations, chest pain, or shortness of breath. Patient asymptomatic at time of arrival. EKG is without evidence of HCOM, right heart strain, ST changes to suggest ischemia, prolong QTc, delta wave, epsilon wave, or Brugada syndrome. Patient denies any family history of sudden cardiac , personal history of of structural heart disease. Patient denies any symptoms to suggest an acute PE, WI, TAD, SAH, seizure, or acute GI bleed as the etiology of their syncope today. On exam, no murmurs to suggest critical aortic stenosis as possible etiology. Per the family patient is a very long-standing history of recurrent similar episodes and has had an extensive evaluation through cardiology and neurology without any identified etiology. The patient and family are requesting discharge home. Based on overall clinical history, exam findings, vitals, and patients appearance, I feel it is safe for patient to be discharged home at this time with close outpatient follow-up and strict return precautions. Patient is in agreement with this plan, has verbalized indications for return to ED, and questions have been answered. - Vital Signs Vital signs: Temp Pulse Resp BP Pulse Ox 97.4 F 17 151/61 H 94 02/04/19 19:27 02/04/19 21:47 02/04/19 21:47 02/04/19 21:47 - Laboratory Result Diagrams: 02/04/19 19:54 02/04/19 19:54 Laboratory results interpreted by me: 02/04/19 02/04/19 02/04/19 19:54 19:54 20:20 RBC 3.63 L Hgb 11.3 L Hct 33.9 L RDW 14.2 H Glucose 129 H Total Protein 5.7 L Albumin 3.4 L Urine Protein 100 H Urine Ketones TRACE H Urine Urobilinogen 2.0 H Urine Ascorbic Acid 20 H - EKG Interpretation by Me Additional EKG results interpreted by me: 02/04/19 21:23 Sinus rhythm, rate 58. No ST elevations or depressions. QTC is 464. Discharge - Discharge Clinical Impression: Near syncope Condition: Good Disposition: HOME, SELF-CARE Additional Instructions: You were seen today after an episode of passing out. Your EKG here is normal. At this time, we do not feel that your episode of passing out was from any life- threatening cause. Please drink plenty of fluids over the next several days. Return to emergency department if you have any further episodes of syncope, headache, weakness, numbness, chest pain, or shortness of breath. Please follow up closely with your primary care physician. Referrals: AYANA GARAY DPM [Primary Care Provider] - Follow up as needed
[2019-02-04 20:14] LABS: ABSOLUTE EOSINOPHILS # (AUTO) 0.1 10^3/uL (0.0-0.6); ABSOLUTE MONOCYTES (AUTO) 0.4 10^3/uL (0.1-1.4); HEMOGLOBIN 11.3 g/dL (12.0-15.5); TOTAL CELLS COUNTED % (AUTO) 100 %
[2019-02-04 20:20] LABS: ABSOLUTE NEUT (AUTO) 4.5 10^3/uL (1.7-8.2); BASOPHILS % (AUTO) 0.7 % (0-2); EOSINOPHILS % (AUTO) 1.7 % (0-6); HEMATOCRIT 33.9 % (36.0-47.0); LYMPHOCYTES % (AUTO) 27.7 % (13-45); MEAN CORPUSCULAR HEMOGLOBIN 31.1 pg (27.0-33.4); MEAN CORPUSCULAR HGB CONC 33.3 g/dL (32.0-36.0); MEAN CORPUSCULAR VOLUME 93 fl (80-97); MONOCYTES % (AUTO) 6.3 % (3-13); PLATELET COUNT 273 10^3/uL (150-450); RED BLOOD COUNT 3.63 10^6/uL (3.72-5.28); RED CELL DISTRIBUTION WIDTH 14.2 % (11.5-14.0); SEGMENTED NEUTROPHILS % (AUTO) 63.6 % (42-78); WHITE BLOOD COUNT 7.1 10^3/uL (4.0-10.5)
[2019-02-04 20:36] LABS: ALANINE AMINOTRANSFERASE 23 U/L (9-52); ALBUMIN 3.4 g/dL (3.5-5.0); ALKALINE PHOSPHATASE 63 U/L (38-126); ANION GAP 9 (5-19); ASPARTATE AMINO TRANSFERASE 14 U/L (14-36); BILIRUBIN,DIRECT 0.2 mg/dL (0.0-0.4); BILIRUBIN,TOTAL 0.3 mg/dL (0.2-1.3); BLOOD UREA NITROGEN 15 mg/dL (7-20); CALCIUM 9.2 mg/dL (8.4-10.2); CARBON DIOXIDE 25 mmol/L (22-30); CHLORIDE 106 mmol/L (98-107); GLUCOSE 129 mg/dL (75-110); POTASSIUM 3.6 mmol/L (3.6-5.0); SODIUM 140.3 mmol/L (137-145); TOTAL PROTEIN 5.7 g/dL (6.3-8.2)
[2019-02-04 21:02] LABS: APPEARANCE,URINE CLOUDY; BILIRUBIN,URINE NEGATIVE (NEGATIVE); COLOR,URINE AMBER; GLUCOSE, URINE NEGATIVE (NEGATIVE); KETONES,URINE TRACE mg/dL (NEGATIVE); LEUKOCYTE ESTERASE,URINE NEGATIVE (NEGATIVE); NITRITE,URINE NEGATIVE (NEGATIVE); PROTEIN,URINE 100 mg/dL (NEGATIVE); URINE SPECIFIC GRAVITY 1.026
[2019-02-04 21:52] VITALS: BP 151/61
--- NOTE | 2019-02-04 23:42 | EKG REPORT ---
SEVERITY:- NORMAL ECG - SINUS RHYTHM : Confirmed by: Jennifer Claros MD 04-Feb-2019 23:42:29
== END 2019-02-04 21:57 | disposition home or self-care (01) ==
LOC: ER 19:27
DX: R55 Syncope and collapse (principal); R11.0 Nausea; I10 Essential (primary) hypertension; F17.200 Nicotine dependence, unspecified, uncomplicated; J44.9 Chronic obstructive pulmonary disease, unspecified
CPT/HCPCS: 36415; 80053; 81001; 83605; 84484; 85025; 93005; 93010; 99284

== ENCOUNTER → 2019-03-06 | Outpatient (CLI) | payer MEDICARE, MEDICAID ==
[2019-03-06 08:42] LABS: ABSOLUTE BASOPHILS # (AUTO) 0.1 10^3/uL (0.0-0.2); ABSOLUTE EOSINOPHILS # (AUTO) 0.2 10^3/uL (0.0-0.6); ABSOLUTE LYMPHOCYTES (AUTO) 2.1 10^3/uL (0.5-4.7); ABSOLUTE MONOCYTES (AUTO) 0.5 10^3/uL (0.1-1.4); ABSOLUTE NEUT (AUTO) 3.5 10^3/uL (1.7-8.2); BASOPHILS % (AUTO) 0.9 % (0-2); EOSINOPHILS % (AUTO) 3.2 % (0-6); HEMOGLOBIN 10.8 g/dL (12.0-15.5); LYMPHOCYTES % (AUTO) 33.3 % (13-45); MEAN CORPUSCULAR HEMOGLOBIN 31.7 pg (27.0-33.4); MEAN CORPUSCULAR HGB CONC 33.9 g/dL (32.0-36.0); MEAN CORPUSCULAR VOLUME 94 fl (80-97); MONOCYTES % (AUTO) 8.2 % (3-13); PLATELET COUNT 286 10^3/uL (150-450); RED BLOOD COUNT 3.41 10^6/uL (3.72-5.28); RED CELL DISTRIBUTION WIDTH 13.9 % (11.5-14.0); SEGMENTED NEUTROPHILS % (AUTO) 54.4 % (42-78); TOTAL CELLS COUNTED % (AUTO) 100 %; WHITE BLOOD COUNT 6.4 10^3/uL (4.0-10.5)
--- NOTE | 2019-03-06 08:49 | RADIOLOGY REPORT (SQ) ---
EXAM DESCRIPTION: ANKLE RIGHT COMPLETE COMPLETED DATE/TIME: 03/06/2019 7:59 am REASON FOR STUDY: NON-PRESSURE CHRONIC ULCER OF RIGHT ANKLE W FAT LAYER EXPOSED L97.312 NON-PRS CHR ONIC ULCER OF RIGHT ANKLE W FAT LAYER EXP L97.322 NON-PRESSURE CHRONIC ULCER OF LEFT ANKLE W FAT LAY ER COMPARISON: 02/01/2019 NUMBER OF VIEWS: Three views. TECHNIQUE: AP, lateral, and oblique radiographic images acquired of the right ankle. LIMITATIONS: None. FINDINGS: MINERALIZATION: Normal. BONES: Stable demineralization of the medial malleolus adjacent to the soft tissue ulceration. No e vidence of acute fracture or dislocation. No evidence of erosion or periosteal reaction. Plantar calcaneal spur. Calcification is again identified in the soft tissues of the plantar fascia near the calcaneal insertion site. JOINTS: No effusions. SOFT TISSUES: The patient has a known history of soft tissue ulceration adjacent to the medial malle olus.. OTHER: No other significant finding. IMPRESSION: 1. No significant interval changes since the prior examination dated 02/01/2019. No radi ographic evidence of osteomyelitis. TECHNICAL DOCUMENTATION: JOB ID: [id number] [employer]- All Rights Reserved Reading location - IP/workstation name: [email or web address]
--- NOTE | 2019-03-06 08:52 | RADIOLOGY REPORT (SQ) ---
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 NUMBER OF VIEWS: Three views. TECHNIQUE: AP, lateral, and oblique radiographic images acquired of the left ankle. LIMITATIONS: None. FINDINGS: MINERALIZATION: Normal. BONES: No acute fracture or dislocation. No evidence of erosion or destruction of bone. Very small plantar calcaneal spur. Worrisome bone lesions. JOINTS: No effusions. SOFT TISSUES: The patient has a known history of soft tissue ulcerations. Small calcified phlebolit hs anterior soft tissue distal lower extremity. Small calcific densities in the region of the distal Achilles tendon maybe related to prior remote injury/ trauma. OTHER: No other significant finding. IMPRESSION: 1. No acute osseous findings. No radiographic evidence of osteomyelitis. TECHNICAL DOCUMENTATION: JOB ID: [id number] [employer]- All Rights Reserved Reading location - IP/workstation name: [email or web address]
[2019-03-06 09:09] LABS: ALANINE AMINOTRANSFERASE 21 U/L (9-52); ALKALINE PHOSPHATASE 62 U/L (38-126); ANION GAP 11 (5-19); ASPARTATE AMINO TRANSFERASE 16 U/L (14-36); BILIRUBIN,DIRECT 0.3 mg/dL (0.0-0.4); BILIRUBIN,TOTAL 0.5 mg/dL (0.2-1.3); BLOOD UREA NITROGEN 13 mg/dL (7-20); CALCIUM 9.5 mg/dL (8.4-10.2); CARBON DIOXIDE 29 mmol/L (22-30); CHLORIDE 102 mmol/L (98-107); GLUCOSE 109 mg/dL (75-110); POTASSIUM 4.8 mmol/L (3.6-5.0); SODIUM 141.9 mmol/L (137-145); TOTAL PROTEIN 6.4 g/dL (6.3-8.2)
[2019-03-06 09:13] LABS: C-REACTIVE PROTEIN < 5.0 mg/L (<10.0)
[2019-03-06 09:29] LABS: ERYTHROCYTE SEDIMENTATION RATE 57 mm/hr (0-30)
== END ==
LOC: WC 07:25
PROVIDERS: ATTEND Preventive Medicine Undersea and Hyperbaric Medicine
DX: L97.312 Non-pressure chronic ulcer of right ankle with fat layer exposed (principal); L97.322 Non-pressure chronic ulcer of left ankle with fat layer exposed
CPT/HCPCS: 36415; 80053; 85025; 85652; 86140

== ENCOUNTER → 2019-03-15 | Outpatient (CLI) | payer MEDICAID, MEDICARE ==
--- NOTE | 2019-03-15 16:20 | XCELERA REPORT ---
[address] [place] [facility] [id number] Lower Extremity Venous Evaluation Procedure: Color flow and duplex imaging of the veins of the left lower extremity as well as the right Common Femoral vein. Right Sided Venous Evaluation The right common femoral vein is fully compressible. Spontaneous and phasic flow is present in the right common femoral vein. Left Sided Venous Evaluation Normal vessel filling wall to wall, compression and augmentation as well as Colour flow down to the infrageniculate veins. Interpretation Summary No duplex evidence of DVT or obstruction in the left lower extremity nor in the right Common Femoral vein. Name: LUCY ASIF Age: 79 yrs Gender: Female : 1940 Patient Status: Outpatient Patient Location: Study Date: 03/15/2019 02:51 PM Reason For Study: LLE PAIN, ULCER Ordering Physician: AYANA GARAY Performed By: Ravindra Marlow : AYANA GARAY > Ole Otoole
== END ==
LOC: SP 14:32
PROVIDERS: ATTEND Preventive Medicine Undersea and Hyperbaric Medicine
DX: L97.322 Non-pressure chronic ulcer of left ankle with fat layer exposed (principal); I73.9 Peripheral vascular disease, unspecified
CPT/HCPCS: 93971